=== PATIENT | male | born 1955 | race Caucasian/White ===

== ENCOUNTER 2019-06-29 21:52 | Emergency (ER) | payer BC ==
[~2019-06-29] VITALS: Ht 188 cm; Wt 131.6 kg
== END 2019-06-30 02:18 | disposition home or self-care (01) ==
LOC: ED 21:52
DX: J44.1 Chronic obstructive pulmonary disease with (acute) exacerbation (principal); I10 Essential (primary) hypertension; E11.9 Type 2 diabetes mellitus without complications; F17.200 Nicotine dependence, unspecified, uncomplicated
CPT/HCPCS: 71045; 71250; 80053; 81001; 83690; 83880; 84484; 85025; 93005; 93010; 94644; 96374; 96375; 99285-25; J1170; J1885; J2405; J2930